=== PATIENT | female | born 1990 | race Caucasian/White ===

== ENCOUNTER 2020-07-12 12:27 | Emergency (ER) | payer OTHER ==
[2020-07-12 13:25] LABS: BILIRUBIN NEGATIVE (NEGATIVE); BLOOD TRACE-INTACT Ery/uL (NEGATIVE); CLARITY CLEAR (CLEAR); COLOR YELLOW (YELLOW); GLUCOSE (U) NORMAL (NORMAL); LEUKOCYTES TRACE Leu/uL (NEGATIVE); NITRITE NEGATIVE (NEGATIVE); PROTEIN NEGATIVE (NEGATIVE); UROBILINOGEN 0.2 mg/dL (0.2-1.0)
[2020-07-12 13:34] LABS: BACTERIA 1+; URINARY RBC RARE
== END 2020-07-12 14:59 | disposition home or self-care (01) ==
LOC: FER 12:27
PROVIDERS: Emergency Medicine
DX: O99.891 Other specified diseases and conditions complicating pregnancy (principal); N89.8 Other specified noninflammatory disorders of vagina; Z3A.17 17 weeks gestation of pregnancy
CPT/HCPCS: 81001; 99283

== ENCOUNTER 2020-12-10 15:38 | Inpatient (IN) | payer OTHER ==
[2020-12-10 16:34] LABS: BILIRUBIN NEGATIVE (NEGATIVE); BLOOD 3+ Ery/uL (NEGATIVE); CLARITY CLEAR (CLEAR); COLOR YELLOW (YELLOW); GLUCOSE (U) NORMAL (NORMAL); LEUKOCYTES 1+ Leu/uL (NEGATIVE); NITRITE NEGATIVE (NEGATIVE); PROTEIN NEGATIVE (NEGATIVE); SPECIFIC GRAVITY 1.025 (1.001-1.030); UROBILINOGEN 0.2 mg/dL (0.2-1.0)
[2020-12-10 16:44] LABS: BACTERIA TRACE; URINARY WBC TNTC
[2020-12-10 19:31] LABS: HCT 39.3 % (37.0-47.0); HGB 13.4 g/dl (12.5-16.0); MCHC 34.1 g/dL (32.0-36.0); MPV 9.7 fL (6.0-9.5); RBC 4.32 M/uL (4.20-5.40); RDW 13.2 % (11.5-14.0); WBC 17.6 K/uL (4.0-10.5)
[2020-12-11 22:51] LABS: HCT 30.1 % (37.0-47.0); HGB 9.9 g/dl (12.5-16.0); MCH 30.6 pg (25.0-31.0); MCHC 32.9 g/dL (32.0-36.0); MCV 92.9 fL (78.0-100.0); MPV 9.1 fL (6.0-9.5); RBC 3.24 M/uL (4.20-5.40); RDW 13.2 % (11.5-14.0); WBC 14.9 K/uL (4.0-10.5)
[2020-12-12] MEDS ORDERED: MOTRIN600 MG PO (06:54)
[2020-12-12] MEDS ORDERED: PRENATAL FORMU1 EACH PO (06:54)
[2020-12-12] MEDS ORDERED: COLACE100 MG PO (06:54)
[2020-12-12] MEDS ORDERED: IRON325 M1 PO (06:54)
== END 2020-12-12 20:47 | disposition home or self-care (01) | DRG 806 ==
LOC: FOD 15:38 → FOB 15:42 → FOD 21:59 → FOB 22:03
PROVIDERS: ADMIT Specialist
PROC: 10E0XZZ Delivery of Products of Conception, External Approach (ICD-10-PCS; principal; 2020-12-11)
PROC: 0KQM0ZZ Repair Perineum Muscle, Open Approach (ICD-10-PCS; 2020-12-11)
PROC: 10H07YZ Insertion of Other Device into Products of Conception, Via Natural or Artificial Opening (ICD-10-PCS; 2020-12-11)
DX: O99.214 Obesity complicating childbirth (principal); D62 Acute posthemorrhagic anemia; Z37.0 Single live birth; O98.82 Other maternal infectious and parasitic diseases complicating childbirth; E66.01 Morbid (severe) obesity due to excess calories; Z3A.39 39 weeks gestation of pregnancy; O70.1 Second degree perineal laceration during delivery; O99.03 Anemia complicating the puerperium; Z20.822 Contact with and (suspected) exposure to COVID-19
CPT/HCPCS: 36415; 81001; 84112; 86850; 86900; 86901; J2001; J3010; J7120; U0002

== ENCOUNTER 2021-01-30 02:24 | Emergency (ER) | payer OTHER ==
[~2021-01-30 02:24] MED LIST: COLACE100 MG PO; IRON325 M1 PO; MOTRIN600 MG PO; PRENATAL FORMU1 EACH PO
[2021-01-30] MEDS ORDERED: NORCO 5-325 TA1 EACH PO (08:31)
[2021-02-02] MEDS ORDERED: METFORMIN HCL500 M1 PO (12:58)
[2021-02-02] MEDS ORDERED: SERTRALINE HCL100 MG PO (12:59)
[2021-02-09] MEDS ORDERED: PHENTERMINE HCL15 MG PO (09:40)
== END 2021-01-30 09:54 | disposition home or self-care (01) ==
LOC: FER 02:24
DX: S82.61XA Displaced fracture of lateral malleolus of right fibula, initial encounter for closed fracture (principal); S82.51XA Displaced fracture of medial malleolus of right tibia, initial encounter for closed fracture; E28.2 Polycystic ovarian syndrome; Z79.84 Long term (current) use of oral hypoglycemic drugs; Z79.899 Other long term (current) drug therapy; W01.0XXA Fall on same level from slipping, tripping and stumbling without subsequent striking against object, initial encounter
CPT/HCPCS: 27810; 73600; 73610; 96374; 96375; 96376; 99152; J1170; J7030

== ENCOUNTER → 2021-02-09 | Day surgery (SDC) | payer OTHER ==
[~2021-02-09] VITALS: Ht 160 cm; Wt 97.1 kg
[~2021-02-09] MED LIST changes: +METFORMIN HCL500 M1 PO; +NORCO 5-325 TA1 EACH PO; +PHENTERMINE HCL15 MG PO; +SERTRALINE HCL100 MG PO
[2021-02-09 09:39] LABS: HCG (URINE) SCREEN NEGATIVE (NEGATIVE)
== END | disposition home or self-care (01) ==
LOC: FAS 09:11
PROVIDERS: Anesthesiology
DX: S82.841A Displaced bimalleolar fracture of right lower leg, initial encounter for closed fracture (principal); K59.00 Constipation, unspecified; F32.9 Major depressive disorder, single episode, unspecified; F41.9 Anxiety disorder, unspecified; Z79.899 Other long term (current) drug therapy; X58.XXXA Exposure to other specified factors, initial encounter
CPT/HCPCS: 73600; 76000; 84703; 93005; C1713; C1769; J0690; J1100; J1170; J1885; J2250; J2405; J2704; J2795; J3010; J7120